=== PATIENT | female | born 1995 | race Hispanic/Latino ===

== ENCOUNTER 2018-12-28 21:05 | Emergency (ER) | payer OTHER ==
--- OUTSIDE RECORDS SUMMARY | 2018-12-28 21:08 | XMS REPORT | Summary of Care ---
:1995 Author Organization [facility] Address [address] [place] [address] Care Team Providers Name Role Phone Yuki Gaspar Primary Care Provider Reason for Visit Reason Comments Initial Visit Encounter Details Date Type Department Care Team Description 12/08/2018 Initial [facility]- Yuki Gaspar Supervision of high risk , antepartum (Primary Dx); Visit KASEY Tovar Short interval between pregnancies affecting in first trimester, antepartum; [address]; [place], [place] Anxiety; [address] [place], [place] History of substance abuse; [phone] History of depression [phone] Allergies No Known Allergiesdocumented as of this encounter (statuses as of 12/08/2018) Medications Medication Sig Dispensed Refills Start Date End Date Status vitamin Take 1 tablet 100 tablet 3 01/23/2018 Active w/FA tablet by mouth daily. PNV 67-iron Take 1 capsule 30 capsule 5 11/20/2017 12/08/2018 Discontinued ps-folate by mouth no.1-dha (VITAFOL daily. ULTRA) 29 mg iron- 1 mg-200 mg Cap docusate calcium Take 1 capsule 60 capsule 1 01/23/2018 12/08/2018 Discontinued 240 mg capsule by mouth once daily as needed for Constipation. ferrous sulfate Take 1 tablet 60 tablet 2 01/23/2018 12/08/2018 Discontinued 325 mg (65 mg by mouth 2 iron) tablet (two) times daily. ibuprofen 600 mg Take 1 tablet 60 tablet 1 01/23/2018 12/08/2018 Discontinued tablet by mouth every 6 (six) hours as needed for Pain (scale 1-3) or Pain (scale 4-6) (Pain). Take with food or milk. documented as of this encounter (statuses as of 12/08/2018) Active Problems Problem Noted Date Multiparity 12/08/2018 (spontaneous vaginal delivery) 01/22/2018 Single live 01/22/2018 Laceration, obstetrical, first degree 01/22/2018 UTI (urinary tract infection) 01/22/2018 39 weeks gestation of 01/21/2018 Abnormality in heart rate and rhythm complicating labor and delivery 02/2018 Anxiety 12/24/2017 Pelvic pain during 12/11/2017 Late care 12/03/2017 Low back pain during in third trimester 11/03/2017 Abnormal maternal glucose tolerance, antepartum 10/22/2017 Insufficient antepartum care 08/26/2017 Supervision of high risk , antepartum 08/26/2017 History of depression 01/20/2014 History of substance abuse 01/20/2014 Anemia 04/13/2009 Estimated Date of Delivery Comments Yes 08/07/2019 Based on last menstrual period of 10/31/2018 (Approximate) documented as of this encounter (statuses as of 12/08/2018) Resolved Problems Problem Noted Date Resolved Date Substance abuse 12/24/2017 01/23/2018 Overview: hx of cocaine and extacy use, last used 01/2015 Depression 12/24/2017 01/23/2018 34 weeks gestation of 12/11/2017 12/17/2017 Bacterial vaginosis 09/01/2017 09/22/2017 Tobacco use disorder 06/13/2016 08/26/2017 Contraceptive management 09/25/2015 08/26/2017 Nexplanon removal 06/19/2015 09/25/2015 Well woman exam 06/19/2015 08/26/2017 History of anxiety 01/20/2014 08/26/2017 Surveillance of previously prescribed contraceptive method 01/17/20142015 Overview: ICD10 Diagnosis 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 Encounter for routine gynecological examination 01/17/2014 06/19/2015 Overview: ICD10 Diagnosis 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 Lump or mass in breast 01/17/2014 06/19/[address] 01/17/2014 06/19/2015 Need for HPV vaccination 01/17/2014 06/19/2015 Need for Tdap vaccination 01/17/2014 06/19/2015 Screening examination for STD (sexually transmitted disease) 01/17/201406/18 documented as of this encounter (statuses as of 12/08/2018) Immunizations Name Administration Dates Next Due HPV 01/17/2014 HPV9 01/22/2018 (Deferred: - PT declined vaccine.) Tdap 11/03/2017, 01/17/2014 documented as of this encounter Social History Tobacco Use Types Packs/Day Years Used Date Former Smoker Cigarettes 0.3 8 07/19/2008 - 04/13/2017 Smokeless Tobacco: Never Used Comments: smoked 1-2 times per day Alcohol Use Drinks/Week oz/Week Comments No 0 Standard drinks or equivalent 0.0 Estimated Date of Delivery Comments Yes 08/07/2019 Based on last menstrual period of 10/31/2018 (Approximate) Sex Assigned at Date Recorded Not on file Job Start Date Occupation Industry Not on file Not on file Not on file Travel History Travel Start Travel End No recent travel history available. documented as of this encounter Last Filed Vital Signs Vital Sign Reading Time Taken Comments Blood Pressure 125/75 12/08/2018 2:23 PM CDT Pulse 112 12/08/2018 2:23 PM CDT Temperature 37.1 C (98.8 F) 12/08/2018 2:23 PM CDT Respiratory Rate 16 12/08/2018 2:23 PM CDT Oxygen Saturation - - Inhaled Oxygen Concentration - - Weight 53.1 kg (117 lb 2 oz) 12/08/2018 2:23 PM CDT Height 157.5 cm (5' 2") 12/08/2018 2:23 PM CDT Body Mass Index 21.42 12/08/2018 2:23 PM CDT documented in this encounter Progress Notes Yuki Gaspar FNP - 12/08/2018 1:15 PM CDT Chief complaint: Chief Complaint Patient presents with Initial Visit HPI CC: Initial Visit Faiza Miller is a 23 year old, , /White female. Patient's last menstrual period was 10/31/2018 (approximate). She is 5w3d with an intrauterine . Her Estimated Date of Delivery: 08/07/19. She is being seen today for her first obstetrical visit. She has no complaints today. OB History Para Term AB Living 2 1 1 0 0 1 SAB TAB Ectopic Multiple Live Births 0 0 0 0 1 # Outcome Date GA Lbr Matehw/2nd Weight Sex Delivery Anes PTL Lv 2 Current 1 Term 01/22/18 40w0d 6 lb 10.2 oz (3.01 kg) M VAGINAL EPI TOBY Histories OB History Para Term AB Living 2 1 1 0 0 1 SAB TAB Ectopic Multiple Live Births 0 0 0 0 1 # Outcome Date GA Lbr Mathew/2nd Weight Sex Delivery Anes PTL Lv 2 Current 1 Term 01/22/18 40w0d 6 lb 10.2 oz (3.01 kg) M VAGINAL EPI TOBY Past Medical History: Diagnosis Date Abnormal maternal glucose tolerance, antepartum 10/22/2017 Anemia 2010 Anxiety ongoing, not on medication Bacterial vaginosis 09/01/2017 Depression ongoing, not on medicaiton. gage well Ovarian cyst 2015 Was seen in the ER Substance abuse hx of cocaine and extacy use, last used 01/2015 Supervision of high risk , antepartum 08/26/2017 Family History Problem Relation Age of Onset Other - see comments Mother lupus Arthritis Mother Depression Mother Genitourinary () Mother Hypertension Mother Miscarriages / Stillbirths Mother Alcohol/Drug Father Depression Father Hypertension Father Learning disabilities Father Depression Maternal Aunt Hypertension Maternal Aunt Coronary Heart Disease Maternal Grandmother Depression Maternal Grandmother Hypertension Maternal Grandmother Cancer Maternal Grandfather pancreatic Diabetes Maternal Grandfather Hypertension Maternal Grandfather Hypertension Paternal Grandmother Hypertension Paternal Grandfather Cancer Paternal Grandfather unknown origin Allergies NoFHx Asthma NoFHx Atherosclerosis NoFHx defects NoFHx Blood Disease NoFHx Genetic NoFHx GI NoFHx Heart NoFHx High cholesterol NoFHx Kidney disease NoFHx Mental retardation NoFHx Musculoskeletal NoFHx Neurological NoFHx Psychiatry NoFHx Pulmonary NoFHx Stroke NoFHx Thyroid NoFHx Vision loss NoFHx Family Status Relation Name Status Mo Alive Fa Alive MAunt Alive MGMo Alive MGFa Alive PGMo Alive PGFa Alive Sis Alive Bro Alive MUnc Alive PAunt Alive PUnc Alive NoFHx (Not Specified) Past Surgical History: Procedure Laterality Date BREAST SURGERY 2013 mass removed from right breast Social History Socioeconomic History Marital status: Spouse name: Not on file Number of children: 0 Years of education: 12 Highest education level: Not on file Occupational History 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 Employer: [employer] Social Needs Financial resource strain: Not on file Food insecurity: Worry: Not on file Inability: Not on file Transportation needs: Medical: Not on file Non-medical: Not on file Tobacco Use Smoking status: Former Smoker Packs/day: 0.30 Years: 8.00 Pack years: 2.40 Types: Cigarettes Start date: 07/19/2008 Last attempt to quit: 04/13/2017 Years since quittin.6 Smokeless tobacco: Never Used Tobacco comment: smoked 1-2 times per day Substance and Sexual Activity Alcohol use: No Alcohol/week: 0.0 oz Drug use: No Types: Marijuana, Oxycodone, Amphetamines Comment: quit in 2014 Sexual activity: Yes Partners: Male control/protection: None Comment: last sexual intercourse 10/11/2018 Lifestyle Physical activity: Days per week: Not on file Minutes per session: Not on file Stress: Not on file Relationships Social connections: Talks on phone: Not on file Gets together: Not on file Attends episcopalian service: Not on file Active member of club or organization: Not on file Attends meetings of clubs or organizations: Not on file Relationship status: Not on file Intimate partner violence: Fear of current or ex partner: Not on file Emotionally abused: Not on file Physically abused: Not on file Forced sexual activity: Not on file Other Topics Concern Service Not Asked Blood Transfusions No Caffeine Concern Not Asked Occupational Exposure Not Asked Hobby Hazards Not Asked Sleep Concern Not Asked Stress Concern Not Asked Weight Concern Not Asked Special Diet Not Asked Back Care Not Asked Exercise Not Asked Bike Helmet Not Asked Seat Belt Not Asked Self-Exams Not Asked Social History Narrative No domestic violence or abuse Patient lives alone with child. One inside cat. Toxoplasmosis education given. Social History Substance and Sexual Activity Sexual Activity Yes Partners: Male control/protection: None Comment: last sexual intercourse 10/11/2018 Genetic Screen Autism / Mental Retardation: (!) Yes(FOB half brother with Autism) Was person tested for Fragile X?: No Elmer Disease: No Congenital Heart Defect: No Cystic Fibrosis: No Down Syndrome: No Familial Dysautonomia: No Hemophilia or other Blood Disorders: No Luann Chorea: No Maternal Metabolic Disorder--specify (eg. Type 1 Diabetes, PKU): No Muscular Dystrophy: No Neural Tube Defect: No Recurrent Loss or a Stillbirth: No Sickle Cell Disease or Trait: No Eros Sachs: No Teratological Substances (specify type & strength/dose) since LMP: No Thalassemia: No Other Inherited Genetic or Chromosomal Disorder (specify): No Labs Labs are pending. Radiology No new radiology. Allergies Faiza has No Known Allergies. Medications Faiza has a current medication list which includes the following prescription(s ): vitamin w/fa. Review of Systems Constitutional: Negative for activity change, appetite change, fatigue, unexpected weight change, weight gain and weight loss. HENT: Negative for sore throat. Eyes: Negative for visual disturbance. Respiratory: Negative for cough and shortness of breath. Breasts: Negative for discharge, mass, pain and unequal size. Cardiovascular: Negative for chest pain, palpitations and leg swelling. Gastrointestinal: Negative. Negative for abdominal pain, anal bleeding, blood in stool, constipation, diarrhea, nausea, rectal pain and vomiting. Genitourinary: Negative for bladder incontinence, dysuria, urgency, flank pain, vaginal bleeding, vaginal discharge, genital sores, vaginal pain and pelvic pain. Skin: Negative for color change and rash. Neurological: Negative. Negative for dizziness, syncope and headaches. Psychiatric/Behavioral: Negative for confusion, self-injury and sleep disturbance. The patient is not nervous/anxious. Hematological: Negative for cold intolerance and heat intolerance. Endocrine: Negative for hair loss, cold intolerance, heat intolerance, weight gain and weight loss. BP 125/75 (BP Location: Right arm, Patient Position: Sitting, BP CUFF SIZE: Adult Medium) | Pulse 112 | Temp 37.1 C (98.8 F) (Oral) | Resp 16 | Ht 5 ' 2" (1.575 m) | Wt 117 lb 2 oz (53.1 kg) |LMP 10/31/2018 (Approximate) | BMI 21.42 kg/m Pregravid BMI: Could not be calculated Physical Exam Vitals reviewed. Constitutional: She is oriented to person, place, and time. She appears well- developed, well-nourished and well-groomed. She has no deformities. Neck: No tenderness and no mass. No thyroid nodules and no thyromegaly palpated. Cardiovascular: Regular rate and rhythm. No murmur auscultated. Pulmonary/Chest: Breath sounds clear to auscultation. Normal inspiratory effort. Abdominal: Abdomen is soft. No mass palpated. No tenderness present. There is no guarding. Neuro/Psychiatric: She has a normal mood and affect. She is oriented to person, place, and time. Skin: Skin normal. No lesion and no rash present. Tattoo present throughout body, bilateral arms, back and neck. Breast: Right breast exhibits no mass, no nipple discharge and no tenderness. Left breast exhibits no mass, no nipple discharge and no tenderness. Normal left breast and normal right breast Rectal: normal rectum External genitalia: Normal external genitalia appropriate for age. Normal hair distribution. No labial lesion. Manager Assurance present for the exam: Lian Stone RN Vagina:Normal vagina. No lesion inspected. No abnormal vaginal discharge found. Cervix: Normal cervix. No lesion. No tenderness and no discharge present. Closed/50/-3 Uterus: Uterus is normal size and non-tender. 6cm Normal uterus Adnexa: Right adnexa without tenderness or mass. Left adnexa without tenderness or mass. Normal leftadnexa and normal right adnexa Anus/perineum: Normal perineum. PHYSICAL: General Exam: HEENT: Normal Thyroid: Normal Lymph Node: Normal Neurological: Normal Abdomen: Normal Skin: Normal Extremities: Normal Pelvic Exam: Vulva: Normal Vagina: Normal Manager Assurance present for the exam: Lian Stone RN Cervix: Normal Uterus: 6 cm Weeks Adnexa: Normal Spines: Average Sacrum: Concave Subpubic Arch: Normal Assessment/Plan Supervision of high risk , antepartum (primary encounter diagnosis) Short interval between pregnancies affecting in first trimester, antepartum Multiparity Comment: Routine Visit Plan: POCT TEST, POCT URINALYSIS W/O SPECIFIC GRAVITY, CBC WITH DIFF, GC & CHLAMYDIA AMPLIFIED ASSAY, HEPATITIS B SURFACE ANTIGEN, HIV 1/2 AG-AB WITH REFLEX, WORKUP, BLOOD BANK, RUBELLA SCREEN (MICHELLE) IGG, GALV ONLY - SYPHILIS IGG/IGM, URINE CULTURE, VZV ANTIBODY SCREEN, Glucose 1 Hour Post Prandial, CBC WITH DIFFERENTIAL Denies zika virus risk, signs and symptoms such as fever,rash,joint pain, conjunctivitis (red eyes), muscle pain, headaches; outside [place] travel to areas affected by zika, and FOB exposure to zika.Educated on use of mosquito repellent. Anxiety History of substance abuse History of depression Comment: resloved Plan: Patient will notify provider if needed Return to clinic in 4 weeks. Discussed treatment options. Medications as ordered. Reviewed patient instructions and provided printed copy. This visit did not involve counseling and coordination that comprised more than 50% of the visit time. KASEY Aguillon 12/08/2018 4:01 PM Lian Leal RN - 12/08/2018 1:15 PM CDTPatient is 23 year old female here for current . Patient is . 1) Previous delivery methods Vaginal in [place] 2) Patient is not experiencing cramping 3) Patient is not experiencing bleeding. 4) LMP 10/31/2018 5) Last Pap was: 08/26/2017 Results: neg 6) Have you had a flu vaccine this season? No, declines 7) PPD candidate? no 8) Patient has no complaints at this time. 9) Patient denies history of physical, emotional, or sexual abuse. Patient states she currently feels safe at home. NOB packet given and reviewed with patient. documented in this encounter Plan of Treatment Date Type Specialty Care Team Description 01/05/2019 Routine Visit OB Satellites Yuki Gaspar FNP [address] [place] [address] [phone] Name Type Priority Associated Diagnoses Date/Time CBC WITH DIFF LAB Routine Supervision of high risk 12/08/2018 3:13 PM , antepartum CDT GC & CHLAMYDIA AMPLIFIED LAB Routine Supervision of high risk 12/08/2018 3 :25 PM ASSAY , antepartum CDT HEPATITIS B SURFACE LAB Routine Supervision of high risk 12/08/2018 3:13 PM ANTIGEN , antepartum CDT HIV 1/2 AG-AB WITH REFLEX LAB Routine Supervision of high risk 12/08/2018 3:13 PM , antepartum CDT RUBELLA SCREEN (MICHELLE) LAB Routine Supervision of high risk 12/08/2018 3: 13 PM IGG , antepartum CDT GALV ONLY - SYPHILIS LAB Routine Supervision of high risk 12/08/2018 3:13 PM IGG/IGM , antepartum CDT URINE CULTURE LAB Routine Supervision of high risk 12/08/2018 3:13 PM , antepartum CDT VZV ANTIBODY SCREEN LAB Routine Supervision of high risk 12/08/2018 3:13 PM , antepartum CDT CBC WITH DIFFERENTIAL LAB Routine Supervision of high risk 12/08/2018 3: 13 PM , antepartum CDT Name Type Priority Associated Diagnoses Order Schedule WORKUP, BLOOD LAB Routine Supervision of high risk Ordered: 2018 BANK , antepartum Glucose 1 Hour Post LAB Routine Supervision of high risk 1 Occurrences starting Prandial , antepartum 12/08/2018 until 01/08/2019 Health Maintenance Due Date Last Done Comments MENINGOCOCCAL B VACCINES (1 07/19/2005 of 2 - Risk Bexsero 2-dose series) HPV VACCINES (2 - Female 02/14/2014 01/17/2014 3-dose series) INFLUENZA VACCINE (#1) 2018 CHLAMYDIA SCREENING 01/15/2019 01/15/2018, 12/24/2017, 12/11/2017, Additional history exists PAP SMEAR 08/26/2020 08/26/2017 DTaP,Tdap,and Td Vaccines (3 11/04/2027 11/03/2017, 01/17/2014 - Td) PNEUMOCOCCAL 0-64 YEARS Aged Out No longer eligible COMBINED SERIES based on patient's age to complete this topic documented as of this encounter Procedures Procedure Name Priority Date/Time Associated Diagnosis Comments POCT URINALYSIS W/O Routine 12/08/2018 2:28 Supervision of high Results for this SPECIFIC GRAVITY PM CDT risk , procedure are in antepartum the results section. POCT TEST Routine 12/08/2018 2:25 Supervision of high Results for this PM CDT risk , procedure are in antepartum the results section. documented in this encounter Results POCT URINALYSIS W/O SPECIFIC GRAVITY (12/08/2018 2:28 PM CDT) POCT PH U 6 5 - 8 mg/dl POCT U LEUK EST 1+ Negative - Negative POCT U NIT Neg Negative - Negative POCT U PROT 1+ Negative - Negative POCT U GLU Neg Negative - Negative POCT U KETONE 2+ Negative - Negative POCT U BLD Neg Negative - Negative Specimen Urine - URINE, CLEAN CATCH POCT TEST (12/08/2018 2:25 PM CDT) POCT PREG Positive On board controls acceptable Yes with C Line POCT PREG LOT # POCT PREG TEST DATE Specimen Urine - URINE, CLEAN CATCH documented in this encounter Visit Diagnoses Diagnosis Supervision of high risk , antepartum - Primary Short interval between pregnancies affecting in first trimester, antepartum Multiparity Anxiety Anxiety state, unspecified History of substance abuse Other, mixed, or unspecified nondependent drug abuse, unspecified History of depression Personal history of other mental disorder documented in this encounter Insurance Payer Benefit Plan / Subscriber ID Effective Phone Address Type Group Dates MEDICAID MEDICAID PENDING 2018-[address] [place] [address] (Home) [address] [place] [address] documented as of this encounter Advance Directives Name Relationship Healthcare Agent Communication Relationship Nadine Valdes Friend Primary healthcare agent James Miller Spouse First alternate healthcare [phone] agent (Mobile) [phone]
--- OUTSIDE RECORDS SUMMARY | 2018-12-28 21:08 | XMS REPORT | Summary of Care ---
:1995 Author Organization [facility] Address [address] [place] [address] Care Team Providers Name Role Phone Yuki Gaspar Primary Care Provider Reason for Visit Reason Comments Initial Visit Encounter Details Date Type Department Care Team Description 12/08/2018 Initial [facility]- Yuki Gaspar Supervision of high risk , antepartum (Primary Dx); Visit KASEY Tovar Short interval between pregnancies affecting in first trimester, antepartum; [address]; [place], [place] Anxiety; [address] [place], [place] History of substance abuse; [phone] History of depression [phone] Allergies No Known Allergiesdocumented as of this [...] contraceptive method 01/17/20142015 Overview: ICD10 Diagnosis 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 Normal hair distribution. No labial lesion. Drafter Commercial present for the exam: Lian Stone RN [...] Normal Pelvic Exam: Vulva: Normal Vagina: Normal Drafter Commercial present for the exam: Lian Stone RN [...] . 1) Previous delivery methods Vaginal in [place] 2) Patient is not experiencing cramping 3) [...] OB Satellites Yuki Gaspar FNP [address] [place] [address] [phone] Name Type Priority Associated Diagnoses Date/Time CBC WITH DIFF LAB Routine Supervision of high risk 12/08/2018 3:13 PM , antepartum CDT HEPATITIS B SURFACE LAB [...] Name Type Priority Associated Diagnoses Order Schedule GC & CHLAMYDIA LAB Routine Supervision of high risk Ordered: 12/08/2018 AMPLIFIED ASSAY , antepartum WORKUP, BLOOD LAB Routine Supervision of high [...] Address Type Group Dates MEDICAID MEDICAID PENDING 2018-[address] [place] [address] documented as of this encounter Advance Directives Name Relationship Healthcare Agent Communication Relationship Nadine Keisha Friend Primary healthcare agent James Miller Spouse First alternate healthcare [phone] agent (Mobile) [phone]
--- OUTSIDE RECORDS SUMMARY | 2018-12-28 21:08 | XMS REPORT ---
:1995 Author Organization [facility] Address [address] [place] [address] Care Team Providers Name Role Phone Unavailable Unavailable Unavailable Problems This patient has no known problems. Allergies, Adverse Reactions, Alerts This patient has no known allergies or adverse reactions. Medications This patient has no known medications.
--- OUTSIDE RECORDS SUMMARY | 2018-12-28 21:08 | XMS REPORT | Summary of Care ---
:1995 Author Organization [facility] [[email or web address]] - Health Address [address] [place] [address] Care Team Providers Name Role Phone Unavailable Primary Care Provider Unavailable Encounter Details Date Type Department Care Team Description 12/08/2018 Orders Only [facility] [[email or web address]] Doctor Unassigned, No [address] [facility] [place] [address] [address] [id number] Allergies No Known Allergiesdocumented as of this encounter (statuses as of 12/08/2018) Medications Medication Sig Dispensed Refills Start Date End Date Status PNV 67-iron ps-folate Take 1 capsule by 30 capsule 5 11/20/2017 Active no.1-dha (VITAFOL mouth daily. ULTRA) 29 mg iron- 1 mg-200 mg Cap vitamin w/FA Take 1 tablet by 100 tablet 3 01/23/2018 Active tablet mouth daily. docusate calcium 240 Take 1 capsule by 60 capsule 1 01/23/2018 Active mg capsule mouth once daily as needed for Constipation. ferrous sulfate 325 Take 1 tablet by 60 tablet 2 01/23/2018 Active mg (65 mg iron) mouth 2 (two) tablet times daily. ibuprofen 600 mg Take 1 tablet by 60 tablet 1 01/23/2018 Active tablet mouth every 6 (six) hours as needed for Pain (scale 1-3) or Pain (scale 4-6) (Pain). Take with food or milk. documented as of this encounter (statuses as of 12/08/2018) Active Problems Problem Noted Date (spontaneous vaginal delivery) 01/22/2018 Single live 01/22/2018 Laceration, obstetrical, first degree 01/22/2018 UTI (urinary tract infection) 01/22/2018 39 weeks gestation of 01/21/2018 Abnormality in heart rate and rhythm complicating labor and delivery 02/2018 Anxiety 12/24/2017 Pelvic pain during 12/11/2017 Late care 12/03/2017 Low back pain during in third trimester 11/03/2017 Abnormal maternal glucose tolerance, antepartum 10/22/2017 Insufficient antepartum care 08/26/2017 Anemia 04/13/2009 documented as of this encounter (statuses as of 12/08/2018) Resolved Problems Problem Noted Date Resolved Date Substance abuse 12/24/2017 01/23/2018 Overview: hx of cocaine and extacy use, last used 01/2015 Depression 12/24/2017 01/23/2018 34 weeks gestation of 12/11/2017 12/17/2017 Bacterial vaginosis 09/01/2017 09/22/2017 Supervision of high risk , antepartum 08/26/2017 01/21/2018 Tobacco use disorder 06/13/2016 08/26/2017 Contraceptive management 09/25/2015 08/26/2017 Nexplanon removal 06/19/2015 09/25/2015 Well woman exam 06/19/2015 08/26/2017 History of depression 01/20/2014 08/26/2017 History of anxiety 01/20/2014 08/26/2017 History of substance abuse 01/20/2014 08/26/2017 Surveillance of previously prescribed contraceptive method 01/17/20142015 Overview: ICD10 Diagnosis Term Search Coordinator Utility Encounter for routine gynecological examination 01/17/2014 06/19/2015 Overview: ICD10 Diagnosis Term Search Coordinator Utility Lump or mass in breast 01/17/2014 [...] No 0 Standard drinks or equivalent 0.0 Sex Assigned at Date Recorded Not on file Job Start Date Occupation Industry Not on file Not on file Not on file Travel History Travel Start Travel End No recent travel history available. documented as of this encounter Last Filed Vital Signs Not on filedocumented in this encounter Plan of Treatment Health Maintenance Due Date Last Done Comments [...] Procedure Name Priority Date/Time Associated Diagnosis Comments ASSIGNMENT OF BENEFITS Routine 12/08/2018 1:25 PM CDT documented in this encounter Results Not on filedocumented in this encounter Advance Directives Name Relationship Healthcare Agent Communication Relationship Nadine Valdes Friend Primary healthcare agent Sandra Brar Other Primary healthcare agent James Miller Spouse First alternate healthcare [phone] agent (Mobile) [phone]
--- OUTSIDE RECORDS SUMMARY | 2018-12-28 21:09 | XMS REPORT | Summary of Care ---
:1995 Author Organization [facility] Address [address] [place] [address] Care Team Providers Name Role Phone Yuki Gaspar Primary Care Provider Reason for Visit Reason Comments Initial Visit Encounter Details Date Type Department Care Team Description 12/08/2018 Initial [facility]- Yuki Gaspar Supervision of high risk , antepartum (Primary Dx); Visit KASEY Tovar Short interval between pregnancies affecting in first trimester, antepartum; [address] [place] [address]; [place], [place] An[place]; [address] [place], [place] History of substance abuse; [phone] History of depression [phone] Allergies No Known Allergiesdocumented as of this [...] contraceptive method 01/17/20142015 Overview: ICD10 Diagnosis Term Icer Air Conditioning Utility Encounter for routine gynecological examination 01/17/2014 06/19/2015 Overview: ICD10 Diagnosis Term Icer Air Conditioning Utility Lump or mass in breast 01/17/2014 [...] level: Not on file Occupational History 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 Normal hair distribution. No labial lesion. Design Studio Consultant present for the exam: Lian Stone RN [...] Normal Pelvic Exam: Vulva: Normal Vagina: Normal Design Studio Consultant present for the exam: Lian Stone RN [...] . 1) Previous delivery methods Vaginal in [place] 2) Patient is not experiencing cramping 3) [...] OB Satellites Yuki Gaspar FNP [address] [place] [address] [phone] Name Type Priority Associated Diagnoses Date/Time CBC [...] Address Type Group Dates MEDICAID MEDICAID PENDING 2018-[address] [place] [address] (Home) [address] [place] [address] documented as of this encounter Advance Directives Name Relationship Healthcare Agent Communication Relationship Nadine Valdes Friend Primary healthcare agent James Miller Spouse First alternate healthcare [phone] agent (Mobile) [phone]
[2018-12-28 22:06] LABS: Absolute Lymphocytes (CBC) 2.5 K/uL (0.7-4.9); Basophils % 0.6 % (0-1.3); Hematocrit 39.2 % (36.0-45.0); MPV 8.9 fL (7.6-11.3); RBC Red Blood Cell Count 4.27 M/uL (3.86-4.86)
[2018-12-28 22:36] LABS: BUN Blood Urea Nitrogen 19 mg/dL (7-18); Bicarbonate 25 mmol/L (21-32); Glucose Level 78 mg/dL (74-106); Potassium 3.4 mmol/L (3.5-5.1); Sodium Level 137 mmol/L (136-145)
[2018-12-28 22:40] LABS: HCG, Quantitative 110504 mIU/mL (1-3)
--- NOTE | 2018-12-28 22:56 | ER ---
Nurse's Notes [facility] Name: Faiza Miller Age: 23 yrs Sex: Female : 1995 Arrival Date: 12/28/2018 Time: 21:08 Bed 5 Private MD: Diagnosis: Less than 8 weeks gestation of Presentation: 12/28 21:10 Presenting complaint: Patient states: About 8 weeks , cramping since yesterday, la1 denies bleeding. Transition of care: patient was not received from another setting of care. Onset of symptoms was December 28, 2018. Risk Assessment: Do you want to hurt yourself or someone else? Patient reports no desire to harm self or others. Initial Sepsis Screen: Does the patient meet any 2 criteria? No. Patient's initial sepsis screen is negative. Does the patient have a suspected source of infection? No. Patient's initial sepsis screen is negative. Care prior to arrival: None. 21:10 Method Of Arrival: Ambulatory la1 21:10 Acuity: CORY 3 la1 Triage Assessment: 21:42 General: Appears in no apparent distress. Behavior is calm, cooperative. 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 - Social history:: Smoking status: Patient/guardian denies using tobacco. - Ebola Screening: : No symptoms or risks identified at this time. Screenin:15 Abuse screen: Denies threats or abuse. Denies injuries from another. Nutritional lp1 screening: No deficits noted. Tuberculosis screening: No symptoms or risk factors identified. Fall Risk None identified. Assessment: 21:45 General: Appears in no apparent distress. Behavior is appropriate for age. Pain: lp1 Complains of pain in left suprapubic area. Neuro: Level of Consciousness is awake, alert, obeys commands, Oriented to person, place, time, situation. Cardiovascular: Patient's skin is warm and dry. Respiratory: Respiratory effort is even, unlabored, Breath sounds are clear bilaterally. GI: Abdomen is flat, Bowel sounds present X 4 quads. Abdomen is tender to palpation in left lower quadrant. : Denies burning with urination, vaginal bleeding. EENT: No signs and/or symptoms were reported regarding the EENT system. Derm: Skin is pink, warm \T\ dry. Musculoskeletal: No deficits noted. 23:02 Reassessment: Patient appears in no apparent distress at this time. No changes from lp1 previously documented assessment. Vital Signs: 21:11 BP 124 / 76; Pulse 68; Resp 16; Temp 97.4; Pulse Ox 100% on R/A; Weight 54.43 kg; la1 Height 5 ft. 2 in. (157.48 cm); 22:01 BP 124 / 81; Pulse 78; Resp 16; Pulse Ox 100% on R/A; lp1 23:02 BP 129 / 80; Pulse 70; Resp 16; Pulse Ox 100% on R/A; lp1 21:11 Body Mass Index 21.95 (54.43 kg, 157.48 cm) la1 ED Course: 21:08 Patient arrived in ED. cf2 21:09 Karo Bower FNP-C is [facility]. kb 21:10 Celestino Javier MD is Attending Physician. kb 21:11 Triage completed. la1 21:12 Arm band placed on right wrist. la1 21:14 Itzel Elmore, RN is Primary Nurse. lp1 21:57 US Transvaginal Ob In Process Unspecified. EDMS 22:01 Patient has correct armband on for positive identification. lp1 23:02 No provider procedures requiring assistance completed. 20g IV to R AC DC'd at this time.lp1 Administered Medications: No medications were administered Outcome: 22:56 Discharge ordered by MD. kb 23:02 Discharged to home ambulatory, with family. lp1 23:02 Condition: good 23:02 Discharge instructions given to patient, Instructed on discharge instructions, follow up and referral plans. Demonstrated understanding of instructions, follow-up care. 23:03 Patient left the ED. lp1 Signatures: Dispatcher [employer] EDNM Karo Bower FNP-C FNP-Itzel Chavez RN RN lp1 Garland Kwon RN RN la1 Joyce Bruce RN RN co1 Gia Rea cf2
--- NOTE | 2018-12-28 22:57 | EDPHYS ---
Physician Documentation [facility] Name: Faiza Miller Age: 23 yrs Sex: Female : 1995 Arrival Date: 12/28/2018 Time: 21:08 Bed 5 Private MD: ED Physician Celestino Javier HPI: 12/28 21:13 This 23 yrs old Female presents to ER via Ambulatory with complaints of kb Abdominal Cramping, 8weeks . 21:13 The patient presents to the emergency department with abdominal pain, of the left lower kb quadrant. The estimated gestational age is 8 weeks. course: care: at a clinic, Leakage of Fluid: none appreciated, Ultrasound: the patient has not had an ultrasound, Risk/complications: no obvious risks or complications are appreciated. Previous pregnancies: in previous pregnancies patient has had vaginal delivery, no complications. Associated signs and symptoms: Pertinent positives: abdominal pain. The patient has not experienced similar symptoms in the past. The patient has not recently seen a physician. 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 - Social history:: Smoking status: Patient/guardian denies using tobacco. - Ebola Screening: : No symptoms or risks identified at this time. ROS: 21:13 Constitutional: Negative for fever, chills, and weight loss, Neck: Negative for injury, kb pain, and swelling, Cardiovascular: Negative for chest pain, palpitations, and edema, Respiratory: Negative for shortness of breath, cough, wheezing, and pleuritic chest pain, Back: Negative for injury and pain, : Negative for injury, bleeding, discharge, and swelling, MS/Extremity: Negative for injury and deformity, Skin: Negative for injury, rash, and discoloration, Neuro: Negative for headache, weakness, numbness, tingling, and seizure. 21:13 Abdomen/GI: Positive for abdominal pain. Exam: 21:15 Constitutional: This is a well developed, well nourished patient who is awake, alert, kb and in no acute distress. Head/Face: Normocephalic, atraumatic. Neck: Trachea midline, no thyromegaly or masses palpated, and no cervical lymphadenopathy. Supple, full range of motion without nuchal rigidity, or vertebral point tenderness. No Meningismus. Chest/axilla: Normal chest wall appearance and motion. Nontender with no deformity. No lesions are appreciated. Cardiovascular: Regular rate and rhythm with a normal S1 and S2. No gallops, murmurs, or rubs. Normal PMI, no JVD. No pulse deficits. Respiratory: Lungs have equal breath sounds bilaterally, clear to auscultation and percussion. No rales, rhonchi or wheezes noted. No increased work of breathing, no retractions or nasal flaring. Back: No spinal tenderness. No costovertebral tenderness. Full range of motion. Skin: Warm, dry with normal turgor. Normal color with no rashes, no lesions, and no evidence of cellulitis. MS/ Extremity: Pulses equal, no cyanosis. Neurovascular intact. Full, normal range of motion. Neuro: Awake and alert, GCS 15, oriented to person, place, time, and situation. Cranial nerves II-XII grossly intact. Motor strength 5/5 in all extremities. Sensory grossly intact. Cerebellar exam normal. Normal gait. 21:15 Abdomen/GI: Inspection: abdomen appears normal, Bowel sounds: normal, in all quadrants, Palpation: soft, in all quadrants, mild abdominal tenderness, in the left lower quadrant. Vital Signs: 21:11 BP 124 / 76; Pulse 68; Resp 16; Temp 97.4; Pulse Ox 100% on R/A; Weight 54.43 kg; la1 Height 5 ft. 2 in. (157.48 cm); 22:01 BP 124 / 81; Pulse 78; Resp 16; Pulse Ox 100% on R/A; lp1 23:02 BP 129 / 80; Pulse 70; Resp 16; Pulse Ox 100% on R/A; lp1 21:11 Body Mass Index 21.95 (54.43 kg, 157.48 cm) la1 MDM: 21:13 Patient medically screened. kb 21:15 Data reviewed: vital signs, nurses notes. Data interpreted: Pulse oximetry: on room air kb is 100 %. Interpretation: normal. 22:55 Counseling: I had a detailed discussion with the patient and/or guardian regarding: the kb historical points, exam findings, and any diagnostic results supporting the discharge/admit diagnosis, lab results, radiology results, the need for outpatient follow up, an OB/Gyne specialist, to return to the emergency department if symptoms worsen or persist or if there are any questions or concerns that arise at home. 12/28 21:13 Order name: Quantitative Hcg; Complete Time: 22:55 kb 12/28 21:13 Order name: Abo/rh Typing; Complete Time: 22:55 kb 12/28 21:10 Order name: US Transvaginal Ob kb 12/28 21:13 Order name: Basic Metabolic Panel; Complete Time: 22:55 kb 12/28 21:13 Order name: CBC with Diff; Complete Time: 22:21 kb 12/28 21:13 Order name: IV Saline Lock; Complete Time: 22:00 kb 12/28 21:13 Order name: Labs collected and sent; Complete Time: 22:00 kb 12/28 21:13 Order name: NPO; Complete Time: 22:00 kb Administered Medications: No medications were administered Disposition: 12/29 06:03 Co-signature as Attending Physician, Celestino Javier MD. Disposition: 12/28/18 22:56 Discharged to Home. Impression: Less than 8 weeks gestation of . - Condition is Stable. - Discharge Instructions: First Trimester of , [id number]. - Medication Reconciliation Form, Thank You Letter, Antibiotic Education, Prescription Opioid Use form. - Follow up: Emergency Department; When: As needed; Reason: Worsening of condition. Follow up: Private Physician; When: 2 - 3 days; Reason: Recheck today's complaints, Continuance of care, Re-evaluation by your physician. Signatures: Dispatcher [employer] EDKaro Zamudio, KASEY-C UNDERGROUND MINING SECTION FOREMAN-Itzel Chavez RN RN lp1 Garland Kwon RN RN la1 Celestino Javier MD MD Corrections: (The following items were deleted from the chart) 12/28 22:56 21:10 [facility]. [facility] 22:56 21:10 Urine Dipstick-Ancillary ordered. [facility] 23:03 22:56 12/28/2018 22:56 Discharged to Home. Impression: Less than 8 weeks gestation of lp1 . Condition is Stable. Forms are Medication Reconciliation Form, Thank You Letter, Antibiotic Education, Prescription Opioid Use. Follow up: Emergency Department; When: As needed; Reason: Worsening of condition. Follow up: Private Physician; When: 2 - 3 days; Reason: Recheck today's complaints, Continuance of care, Re-evaluation by your physician. kb
[2018-12-28 23:35] VITALS: TEMP 97.4; O2SAT 100
[2018-12-28 23:38] VITALS: BP 129/80
--- NOTE | 2018-12-29 08:55 | RAD REPORT ---
EXAM DESCRIPTION: US - Transvaginal OB - 12/28/2018 9:56 pm CLINICAL HISTORY: with pelvic pain COMPARISON: None. FINDINGS: The uterus is retroverted measuring 9 x 7 x 7 centimeters. A normal appearing gestational sac is present within the endometrium. Within this is a yolk sac and pole with a crown-rump le ngth 1 centimeters. Cardiac activity 142 beats per minute Right and left ovary appear normal. . Right and left adnexal unremarkable No significant free fluid is seen. IMPRESSION: Single live intrauterine with an estimated gestational age 7 weeks 1 day KAY 08/15/2019
== END 2018-12-28 23:03 | disposition home or self-care (01) ==
LOC: ER 21:05
DX: O26.891 Other specified pregnancy related conditions, first trimester (principal)
CPT/HCPCS: 36415; 76817; 80048; 84702; 85025; 86900; 86901; 99283

== ENCOUNTER 2019-07-30 14:44 | Inpatient (IN) | payer OTHER ==
--- OUTSIDE RECORDS SUMMARY | 2019-08-01 04:02 | XMS REPORT ---
:1995 Author Organization [facility] t Address [address] [place] [address] [address] [place] [address] Care Team Providers Name Role Phone Unavailable Unavailable Unavailable Problems This patient has no known problems. Allergies, Adverse Reactions, Alerts This patient has no known allergies or adverse reactions. Medications This patient has no known medications.
[2019-08-01] MEDS ORDERED: METHYLERGONOVINE 0.2MG/ML AMP IM PRN (04:09)
[2019-08-01] MEDS ORDERED: Ringers Lactate 1,000 ML IV PRN (04:09)
[2019-08-01] MEDS ORDERED: CARBOPROST TROME 250 MCG/ML IM PRN (04:09)
[2019-08-01] MEDS ORDERED: LIDOCAINE 1% MPF 30 ML VIAL SQ PRN (04:15)
[2019-08-01] MEDS ORDERED: OXYTOCIN/LR 20 UNIT/1,000 ML BAG IV SCH ×2 (05:00→14:00)
[2019-08-01] MEDS ORDERED: Ringers Lactate 1,000 ML IV SCH (05:00)
[2019-08-01 05:01] LABS: Absolute Lymphocytes (CBC) 2.2 K/uL (0.7-4.9); Basophils % 0.5 % (0-1.3); MPV 9.7 fL (7.6-11.3); RBC Red Blood Cell Count 3.91 M/uL (3.86-4.86)
[2019-08-01 05:03] LABS: Urine Appearance TURBID; Urine Bilirubin NEGATIVE (NEG); Urine Blood TRACE (NEG); Urine Color YELLOW; Urine Glucose NEGATIVE (NEG); Urine Protein 1+ (NEG); Urine Specific Gravity >=1.030 (1.005-1.030); Urine Urobilinogen 0.2 mg/dL (0.2-1.0)
[2019-08-01 05:10] LABS: Urine Microscopic Reflex ORDER UMIC
[2019-08-01 05:41] VITALS: BMI 27.8
[2019-08-01 05:47] LABS: Urine Culture Reflex Order REFLEXED
[2019-08-01 05:48] LABS: Urine Bacteria >50 /HPF (<20); Urine RBC <5 /HPF (NONE SEEN); Urine Yeast FEW (NONE SEEN)
[2019-08-01 05:49] LABS: Urine Urothelial Cells <5 /HPF (NONE SEEN); Urine Yeast with Hyphae PRESENT
[2019-08-01] MEDS ORDERED: PROMETHAZINE INJ 25 MG/ML AMP IM PRN (07:14)
[2019-08-01] MEDS ORDERED: BUTORPHANOL 1 MG/ML INJ IV PRN (07:15)
[2019-08-01] MEDS ORDERED: FENTANYL CITR 100 MCG/2 ML IV ONE (07:59)
[2019-08-01] MEDS ORDERED: ROPIVACAINE HCL 100 ML IV PRN (07:59)
[2019-08-01] MEDS ORDERED: ROPIVACAINE HCL 0.2% 20ML AMP IV ONE (08:01)
--- NOTE | 2019-08-01 08:46 | PREOPHP ---
Date of Admission: 08/01/2019 A 24-year-old 2, para 1, 39 weeks' gestation. Rh positive. Immune to Rubella. Negative bet a strep screen. 3 cm, but the baby is still -2 to -3 station. She is w[place] regularly. ____ given. Patient will probably be requesting epidural. She knows if spontaneous rupture of membr anes occurs, she is to tell the staff immediately so they can check her and make sure that we do not have a prolapsed cord. Otherwise, we will check her in an hour and see if the baby is lower, and if it is, rupture membranes at that point. HEATH/DEVAN Voice ID: [id number]
--- NOTE | 2019-08-01 09:01 | PN ---
Patient has had 1 mg of Stadol. Resting comfortably. Sal regularly. She is 3-1/2, but stil l posterior and baby is somewhat high, so we will wait for the baby to come down before we attempt me mbrane rupture. HEATH/DEVAN Voice ID: [id number] Report ID: [id number]
[2019-08-01] MEDS ORDERED: Oxycodone HCl/Acetaminophen 1 TAB TAB PO PRN (13:26)
[2019-08-01] MEDS ORDERED: ACETAMINOPHEN 500 MG TAB PO PRN (13:26)
[2019-08-01] MEDS ORDERED: DOCUSATE NA/SENNA CONC 1 TAB PO PRN (13:26)
[2019-08-01] MEDS ORDERED: DIPHENHYDRAMINE 25 MG TAB/CAP PO PRN (13:26)
[2019-08-01] MEDS ORDERED: BISACODYL 10 MG RECTAL SUPP PR PRN (13:26)
--- NOTE | 2019-08-01 14:21 | OP ---
Surgeon: Junior Cook MD 24-year-old 2, para 1, 39 weeks' gestation at approximately 2-1/2 to 3 cm on admission. Baby still high, initially received Stadol IV, Phenergan IM. When baby came to a lower station received epidural anesthesia. This gave good effect during remainder of labor and delivery. When patient was checked by me 20 to 25 minutes ago she was completely dilated, rupture of membranes was performed. Clear fluid. Within the next 5 to 10 minutes patient started having pressure, second stage of approx imately 10 to 15 minutes. Spontaneous vaginal delivery of an estimated 6 to 7 pound female, Apgars 9 and 9. No episiotomy. No laceration. Forrest delivery of the placenta. Uterus contracted down wel l with IV drip Pitocin. Estimated blood loss 300 to 350 cc. Tolerated all procedures well. Rh posi tive, immune to Rubella. Negative beta strep screen. Final Diagnoses: Term intrauterine 39 weeks, vaginal delivery, epidural anesthesia. HEATH/DEVAN Voice ID: [id number] Report ID: [id number]
[2019-08-01] MEDS: IBUPROFEN 600 MG TAB PO PRN ×2 (16:45→21:51)
[2019-08-01] MEDS ORDERED: Ringers Lactate 2,000 ML IV ONE (18:04)
[2019-08-01 23:15] LABS: RPR (Rapid Plasma Reagin) NON-REACT (NON-REACT)
[2019-08-02] MEDS: Oxycodone HCl/Acetaminophen 1 TAB TAB PO PRN ×3 (01:20→11:56)
[2019-08-02] MEDS: IBUPROFEN 600 MG TAB PO PRN ×2 (06:04→16:21)
[2019-08-02] MEDS ORDERED: Tdap (Diph,Pertuss(Acell),Tet Vac) 0.5 ML SYR IMVAC ONE ×2 (08:19→08:30)
--- NOTE | 2019-08-02 09:17 | DS ---
24-year-old 2, para 1, 39 weeks gestation, delivered of an estimated 6 to 7 pounds female. A pgars 9 and 9. No episiotomy. No laceration. Schultze delivery of the placenta, which was inspecte d and noted to be intact and normal. 300 to 350 mL blood loss. Rh positive, immune to Rubella. Neg ative beta strep screen. ; afebrile, ambulating, voiding. Lochia is normal. Will be dism issed later today to report back to my office in 6 weeks for followup, to report any temperature elev ation of 100 degrees or greater, severe pain, heavy bleeding, or any other type of abnormalities. román is advised to get the Tdap administration before she leaves. She was advised to get this of course during the . No post epidural problems. Tramadol for analgesia at her request. Although, she knows this will only be necessary for the next couple of days after which time she should be abl e to use Motrin. Final Diagnoses: Term intrauterine at 39 weeks. Labor induction. Vaginal delivery. Epid ural anesthesia. HEATH/DEVAN Voice ID: [id number] Report ID: [id number]
[2019-08-02 12:03] VITALS: BP 130/68; TEMP 97.4
[2019-08-03 12:36] LABS: HBsAG Nonreactive (Nonreactive)
== END 2019-08-02 17:50 | disposition home or self-care (01) | DRG 807 ==
LOC: 2ND-WC 08-01 04:00
PROVIDERS: ADMIT Specialist; ATTEND Specialist
PROC: 10E0XZZ Delivery of Products of Conception, External Approach (ICD-10-PCS; principal; 2019-08-01)
PROC: 10907ZC Drainage of Amniotic Fluid, Therapeutic from Products of Conception, Via Natural or Artificial Opening (ICD-10-PCS; 2019-08-01)
DX: O80 Encounter for full-term uncomplicated delivery (principal); Z37.0 Single live birth; Z3A.39 39 weeks gestation of pregnancy
CPT/HCPCS: 36415; 81003; 81015; 85025; 86592; 86850; 86900; 86901; 87086; 87088; 87340; 90471; 90715; J0595; J2550; J2590; J2795; J3010; J7120